=== PATIENT | female | born 2000 | race Caucasian/White ===

== ENCOUNTER 2021-12-11 18:06 | Emergency (ER) | payer OTHER ==
[2021-12-11 18:33] VITALS: BP 128/80; PULSE 91; TEMP 97.8; BMI 19.9
[2021-12-11 20:27] LABS: HCG,QUALITATIVE URINE Positive
[2021-12-11 20:31] LABS: EPI CELLS 4 /uL (0-25.1); HYALINE CASTS 0 /uL (0-3.1); URINE APPEARANCE CLEAR; URINE BACTERIA 3442 /uL (0-1359); URINE BILIRUBIN NEGATIVE (NEGATIVE); URINE COLOR YELLOW; URINE GLUCOSE (UA) NEGATIVE (NEGATIVE); URINE KETONE NEGATIVE (NEGATIVE); URINE LEUK ESTERASE TRACE (NEGATIVE); URINE NITRITE NEGATIVE (NEGATIVE); URINE PROTEIN NEGATIVE (NEGATIVE); URINE RBC 1 /uL (0-23.9); URINE UROBILINOGEN 0.2 mg/dL (0.2-1.0); URINE WBC 10 /uL (0-25.8)
[2021-12-11 20:43] LABS: BASO % 0.2 % (0-2.0); EOS % 0.9 % (0-4.5); LYMPH % 26.6 % (8-40); MCH 30.3 pg (25.7-33.7); MCHC 34.2 g/dl (32.0-36.0); MEAN CELL VOLUME 88.6 fl (80-96); MEAN PLT VOLUME 7.5 fl (7.5-11.1); NEUT % 64.3 % (42.8-82.8); PLATELET COUNT 275 10^3/uL (134-434); RBC 3.95 M/mm3 (3.60-5.2); RDW 13.6 % (11.6-15.6); WHITE BLOOD COUNT 7.8 K/mm3 (4.0-10.0)
[2021-12-11 21:01] LABS: CALCIUM 8.9 mg/dL (8.5-10.1)
[2021-12-11 21:02] LABS: BLOOD UREA NITROGEN 12.6 mg/dL (7-18)
[2021-12-11 21:05] LABS: CREATININE 0.5 mg/dL (0.55-1.3)
[2021-12-11 21:06] LABS: BILIRUBIN,TOTAL 0.5 mg/dL (0.2-1); TOT PROT 7.4 g/dl (6.4-8.2)
[2021-12-11] MEDS ORDERED: RHO(D) IMMUNE GLOBULIN 1,500 UNIT DISP.SYRIN IM ONE (22:45)
== END 2021-12-12 01:32 | disposition home or self-care (01) ==
LOC: JER 18:06
PROC: 3E023GC Introduction of Other Therapeutic Substance into Muscle, Percutaneous Approach (ICD-10-PCS; principal; 2021-12-11)
DX: O20.0 Threatened abortion (principal); O23.41 Unspecified infection of urinary tract in pregnancy, first trimester; Z3A.01 Less than 8 weeks gestation of pregnancy
CPT/HCPCS: 36415; 76817-TC; 80053; 81003; 84702; 84703; 85025; 86850; 86900; 86901; 86999; 87086; 87186; 99284-25; J1561

== ENCOUNTER 2021-12-13 21:35 | Emergency (ER) | payer OTHER ==
[2021-12-13 21:43] VITALS: TEMP 98; BMI 19.9
[2021-12-13 23:12] LABS: BASO % 0.4 % (0-2.0); EOS % 0.4 % (0-4.5); HEMATOCRIT 33.2 % (32.4-45.2); HEMOGLOBIN 11.5 GM/dL (10.7-15.3); LYMPH % 19.9 % (8-40); MCH 30.5 pg (25.7-33.7); MCHC 34.5 g/dl (32.0-36.0); MEAN CELL VOLUME 88.4 fl (80-96); MEAN PLT VOLUME 7.1 fl (7.5-11.1); MONO % 6.4 % (3.8-10.2); NEUT % 72.9 % (42.8-82.8); PLATELET COUNT 252 10^3/uL (134-434); RBC 3.76 M/mm3 (3.60-5.2); RDW 13.5 % (11.6-15.6); WHITE BLOOD COUNT 8.8 K/mm3 (4.0-10.0)
[2021-12-14 00:38] VITALS: BP 113/59; PULSE 101
== END 2021-12-14 00:38 | disposition home or self-care (01) ==
LOC: JER 21:35
DX: O03.9 Complete or unspecified spontaneous abortion without complication (principal)
CPT/HCPCS: 36415; 76817-TC; 84702; 85025; 99284-25

== ENCOUNTER 2023-06-21 08:00 | Inpatient (IN) | payer OTHER ==
[2023-06-21 09:34] VITALS: BMI 26.4
[2023-06-21] MEDS ORDERED: CITRIC ACID/SODIUM CITRATE 30 ML UNIT-DOSE CUP PO ONE (10:11)
[2023-06-21] MEDS ORDERED: ELECTROLYTE-148 SOLN 1,000 ML IV SCH ×2 (10:15→12:12)
[2023-06-21] MEDS ORDERED: ACETAMINOPHEN 325 MG TABLET (FP) PO PRN (10:15)
[2023-06-21] MEDS ORDERED: IBUPROFEN 800 MG/8 ML IJ IVPB PRN (10:15)
[2023-06-21] MEDS ORDERED: ONDANSETRON 4 MG/2 ML VIAL IVPUSH PRN (11:13)
[2023-06-21 11:36] LABS: CORD BASE EXCESS -3.7 mmol/L (0-2); CORD HCO3 23.3 mmHg (20-29); CORD PCO2 48.9 mmHg (30-78); CORD pH 7.295 (7.14-7.44)
[2023-06-21] MEDS ORDERED: ELECTROLYTE-148 SOLN 500 ML IV ONE (11:42)
[2023-06-21] MEDS ORDERED: OXYTOCIN 20 UNITS in 0.9% NS 20 UNIT/1,000 ML INFUS.BAG IV ONE (12:46)
[2023-06-21] MEDS: OXYTOCIN 20 UNITS in 0.9% NS 20 UNIT/1,000 ML INFUS.BAG IV SCH ×2 (13:00→21:50)
[2023-06-21] MEDS ORDERED: oxyCODONE HCL 5 MG TABLET PO PRN (22:15)
[2023-06-22 08:46] LABS: BASO % 0.1 % (0-2.0); EOS % 0.1 % (0-4.5); HEMATOCRIT 34.2 % (32.4-45.2); HEMOGLOBIN 11.6 GM/dL (10.7-15.3); LYMPH % 18.3 % (8-40); MCH 30.9 pg (25.7-33.7); MEAN CELL VOLUME 90.9 fl (80-96); MEAN PLT VOLUME 9.1 fl (7.5-11.1); MONO % 5.3 % (3.8-10.2); NEUT % 76.2 % (42.8-82.8); PLATELET COUNT 148 10^3/uL (134-434); RBC 3.77 M/mm3 (3.60-5.2); RDW 14.2 % (11.6-15.6); WHITE BLOOD COUNT 15.2 K/mm3 (4.0-10.0)
[2023-06-22] MEDS: SIMETHICONE 80 MG TAB.CHEW (FP) PO PRN ×2 (10:03→21:14)
[2023-06-22] MEDS ORDERED: BISACODYL 10 MG SUPP.RECT RC PRN (10:15)
[2023-06-22] MEDS: IBUPROFEN 600 MG TABLET (FP) PO PRN (21:19)
[2023-06-23] MEDS: IBUPROFEN 600 MG TABLET (FP) PO PRN (21:18)
[2023-06-24 07:47] LABS: BASO % 0.3 % (0-2.0); HEMATOCRIT 32.1 % (32.4-45.2); HEMOGLOBIN 10.9 GM/dL (10.7-15.3); LYMPH % 13.3 % (8-40); MCH 31.3 pg (25.7-33.7); MEAN PLT VOLUME 7.9 fl (7.5-11.1); MONO % 4.5 % (3.8-10.2); NEUT % 79.9 % (42.8-82.8); PLATELET COUNT 194 10^3/uL (134-434); RBC 3.49 M/mm3 (3.60-5.2)
[2023-06-24 08:16] VITALS: BP 128/87; PULSE 72; RESP 20; TEMP 97.8
[2023-06-24] MEDS ORDERED: RHO(D) IMMUNE GLOBULIN 1,500 UNIT DISP.SYRIN IM ONE (12:13)
== END 2023-06-24 13:45 | disposition home or self-care (01) | DRG 540 ==
LOC: JLDR 08:00 → J3W 13:15
PROVIDERS: ADMIT Student in an Organized Health Care Education/Training Program; ATTEND Student in an Organized Health Care Education/Training Program
PROC: 10D00Z1 Extraction of Products of Conception, Low, Open Approach (ICD-10-PCS; principal; 2023-06-21)
DX: O32.1XX0 Maternal care for breech presentation, not applicable or unspecified (principal); Z3A.39 39 weeks gestation of pregnancy; Z37.0 Single live birth
CPT/HCPCS: 36415; 36600; 80053; 82803; 85025; 85461; 85610; 86780; 86850; 86870; 86900; 86901; 86902; 88307-TC; 96372; J2790